=== PATIENT | female | born 1935 | race Caucasian/White ===

== ENCOUNTER 2016-11-17 11:44 | Inpatient (IN) | payer MEDICARE, MEDICAID ==
[~2016-11-17] VITALS: Ht 152.4 cm; Wt 83.0 kg
[2016-11-17] VITALS (11 sets, daily range): BP systolic 88–147; BP diastolic 33–71; PULSE 77–93; RESP 12–24; TEMP 97.8–98.7; O2SAT 95–99
[~2016-11-17 11:44] MED LIST: FAMO20TA8 PO; GLU850 PO; LEVO112T5 PO; LISI-209 PO; METO25TA6 PO
[2016-11-17] MEDS ORDERED: NACL 0.9% 1,000 ML IV ONE ×3 (12:00)
[2016-11-17 12:44] LABS: BASOPHILS # (AUTO) 0.1 K/uL (0.0-0.2); BASOPHILS % (AUTO) 1.4 % (0.0-2.0); EOSINOPHILS # (AUTO) 0.1 K/uL (0.0-0.4); EOSINOPHILS % (AUTO) 1.1 % (0.0-4.0); HEMATOCRIT 34.2 % (36-48); HEMOGLOBIN 11.4 g/dL (12.0-16.0); LYMPHOCYTES # (AUTO) 1.6 K/uL (1.0-5.5); MEAN CORPUSCULAR HEMOGLOBIN 28 pg (27-31); MEAN CORPUSCULAR HGB CONC 33 % (32-36); MEAN CORPUSCULAR VOLUME 84 fL (79.0-98.0); MONOCYTES % (AUTO) 11.3 % (1.7-9.3); NEUTROPHILS # (AUTO) 6.2 K/uL (1.8-7.7); NEUTROPHILS % (AUTO) 68.2 % (40.0-70.0); PLATELET COUNT (AUTO) 114 K/uL (130-430); RED BLOOD CELL COUNT(AUTO) 4.06 MIL/uL (4.2-6.2); RED CELL DISTRIBUTION WIDTH 16.2 % (9.0-15.0)
[2016-11-17 12:45] LABS: ANION GAP 11 (5-15); CALCIUM 10.4 mg/dL (8.4-11.0); CHLORIDE 98 mmol/L (98-107); CREATININE 2.01 mg/dL (0.55-1.30); GLUCOSE 125 mg/dL (70-99); POTASSIUM 4.3 mmol/L (3.5-5.1); SODIUM SERUM 132 mmol/L (136-145); UREA NITROGEN, BLOOD 27 mg/dL (8-21)
[2016-11-17 12:47] LABS: INR 1.1 (0.8-1.2)
[2016-11-17 12:49] LABS: ALANINE AMINOTRANSFERASE 16 U/L (12-78); ALBUMIN 2.7 g/dL (3.4-4.8); ASPARTATE AMINOTRANSFERASE 24 U/L (10-37); SALICYLATE 1 mg/dL (3-30); TOTAL BILIRUBIN 0.7 mg/dL (0.0-1.0); TOTAL PROTEIN, SERUM 6.8 g/dL (6.4-8.3)
[2016-11-17 12:52] LABS: ALCOHOL, BLOOD < 3 mg/dL (<10)
[2016-11-17 13:01] LABS: BILIRUBIN,URINE NEGATIVE (NEGATIVE); BLOOD, URINE 3+ (NEGATIVE); CLARITY/URINE HAZY (CLEAR); COLOR,URINE YELLOW (YELLOW); GLUCOSE,URINE NEGATIVE (NEGATIVE); KETONES,URINE TRACE (NEGATIVE); LEUKOCYTE ESTERASE ,URINE 2+ (NEGATIVE); NITRITE, URINE POSITIVE (NEGATIVE); PH,URINE 5.5 (5.0-8.0); PROTEIN URINE 3+ (NEGATIVE); UROBILINOGEN,URINE 0.2 (0.2-1.0)
[2016-11-17 13:08] LABS: ACETAMINOPHEN < 1 ug/mL (1-30)
[2016-11-17 13:18] LABS: OPIATE, URINE POSITIVE (NEG <=100); UR TRICYCLIC ANTIDEPRESSANTS POSITIVE (NEG <=300)
[2016-11-17 13:19] LABS: BARBITURATE, URINE NEGATIVE (NEG <=200); BENZODIAZEPINE, URINE POSITIVE (NEG <=150); CANNABINOID, URINE NEGATIVE (NEG <=50); COCAINE, URINE NEGATIVE (NEG <=150); METHAMPHETAMINES SCREEN,URINE NEGATIVE (NEG <=500); PHENCYCLIDINE SCREEN,URINE NEGATIVE (NEG <=25); URINE AMPHETAMINE NEGATIVE (NEG <=500); URINE METHADONE NEGATIVE (NEG <=200); URINE OXYCODONE SCREEN NEGATIVE (NEG <=100); URINE PROPOXYPHENE SCREEN NEGATIVE (NEG <=300)
[2016-11-17 13:30] LABS: BACTERIA,URINE MANY /HPF (None Seen); MUCUS,URINE 1+ /LPF (None Seen); WBC,URINE 50-80 /HPF (0-3)
[2016-11-17] MEDS ORDERED: ENOXAPARIN SODIUM 80 MG/0.8 ML SYRINGE SUBCUT ONE (14:00)
[2016-11-17] MEDS ORDERED: cefTRIAXone 1 GM IVPB PREMIX 50 ML IV ONE (14:00)
[2016-11-17] MEDS ORDERED: NOREPINEPHRINE BITARTRATE 4 MG in NS 250 ML IV ONE (14:45)
[2016-11-17] MEDS ORDERED: NOREPINEPHRINE 4 MG/4 ML VIAL IV ONE (14:54)
[2016-11-17] MEDS ORDERED: cefTRIAXone 1 GM VIAL ONE (15:26)
[2016-11-17] MEDS ORDERED: NACL 0.9% 1,000 ML IV SCH (15:30)
[2016-11-17] MEDS ORDERED: NOREPINEPHRINE BITARTRATE 4 MG in NS 246 ML IV PRN (15:30)
[2016-11-17] MEDS ORDERED: LEVOFLOXACIN 500 MG/D5W 100 ML IV ONE (16:00)
[2016-11-17] MEDS ORDERED: DEXTROSE 50% JECT 50 ML DISP.SYRIN IVP PRN (17:15)
[2016-11-17] MEDS ORDERED: ALBUTEROL SULFATE 0.083% 2.5 MG/3 ML VIAL.NEB INH ONE (17:30)
[2016-11-17] MEDS: INSULIN REGULAR, HUMAN 100 UNITS/ML, 10 ML VIAL (novoLIN R) SUBCUT PRN ×2 (18:09→21:09)
[2016-11-17] MEDS: PIPERACILLIN/TAZO 2.25G/DEX-IS 50 ML IV SCH (18:17)
[2016-11-17] MEDS: ALBUTEROL SULFATE 0.083% 2.5 MG/3 ML VIAL.NEB INH SCH ×2 (19:38→23:02)
[2016-11-17] MEDS: NACL 0.9% 1,000 ML IV SCH (19:39)
[2016-11-17] MEDS ORDERED: LORazepam 2 MG/ML VIAL ONE (20:57)
[2016-11-17] MEDS ORDERED: LORazepam 2 MG/ML VIAL IVP PRN (21:00)
[2016-11-17] MEDS ORDERED: HYDROcodone/ACETAMIN 5-325 MG TAB (NORCO/ VICODIN) PO PRN (21:00)
[2016-11-17] MEDS: LACTOBACILLUS RHAMNOSUS GG 1 CAP CAPSULE PO SCH (21:04)
[2016-11-17] MEDS ORDERED: SER25 PO ×2 (21:17)
[2016-11-17] MEDS ORDERED: LEVO112T5 PO (21:17)
[2016-11-17] MEDS ORDERED: ASPI-862 PO (21:17)
[2016-11-17] MEDS ORDERED: ZIN220 PO (21:17)
[2016-11-17] MEDS ORDERED: OMEP20CA10 PO (21:17)
[2016-11-17] MEDS ORDERED: ACET-2165 PO (21:17)
[2016-11-17] MEDS ORDERED: LISI-600 PO (21:17)
[2016-11-17] MEDS ORDERED: ASCO500T20 PO (21:17)
[2016-11-17] MEDS ORDERED: MULT-1117 PO (21:17)
[2016-11-17] MEDS ORDERED: MELA3TAB37 PO (21:17)
[2016-11-17] MEDS ORDERED: MINE3.5O27 OP (21:17)
[2016-11-17] MEDS ORDERED: IPRA3AMP9 INH ×3 (21:17)
[2016-11-17] MEDS ORDERED: METO25TA6 PO (21:17)
[2016-11-17] MEDS ORDERED: SENN8.8S13 PO (21:17)
[2016-11-17] MEDS ORDERED: FERR-57 PO (21:17)
[2016-11-17] MEDS ORDERED: POLY17PO4 PO (21:17)
[2016-11-17] MEDS ORDERED: SENN-153 PO (21:17)
[2016-11-18] VITALS (18 sets, daily range): BP systolic 99–180; BP diastolic 40–80; PULSE 72–105; RESP 17–24; TEMP 97.9–100; O2SAT 96–100
[2016-11-18] MEDS: PIPERACILLIN/TAZO 2.25G/DEX-IS 50 ML IV SCH ×4 (01:10→18:10)
[2016-11-18] MEDS: NACL 0.9% 1,000 ML IV SCH (01:10)
[2016-11-18 03:14] LABS: ANION GAP 9 (5-15); CHLORIDE 109 mmol/L (98-107); CREATININE 1.35 mg/dL (0.55-1.30); GLUCOSE 99 mg/dL (70-99); POTASSIUM 3.7 mmol/L (3.5-5.1); SODIUM SERUM 140 mmol/L (136-145); UREA NITROGEN, BLOOD 23 mg/dL (8-21)
[2016-11-18 03:37] LABS: ALANINE AMINOTRANSFERASE 11 U/L (12-78); ALBUMIN 1.9 g/dL (3.4-4.8); ASPARTATE AMINOTRANSFERASE 19 U/L (10-37); PHOSPHORUS 2.6 mg/dL (2.7-4.5); TOTAL BILIRUBIN 0.4 mg/dL (0.0-1.0); TOTAL PROTEIN, SERUM 5.1 g/dL (6.4-8.3)
[2016-11-18] MEDS: ALBUTEROL SULFATE 0.083% 2.5 MG/3 ML VIAL.NEB INH SCH ×5 (04:11→19:48)
[2016-11-18 07:27] LABS: BASOPHILS # (AUTO) 0.1 K/uL (0.0-0.2); BASOPHILS % (AUTO) 3.2 % (0.0-2.0); EOSINOPHILS # (AUTO) 0.1 K/uL (0.0-0.4); EOSINOPHILS % (AUTO) 3.4 % (0.0-4.0); HEMATOCRIT 28.1 % (36-48); HEMOGLOBIN 8.9 g/dL (12.0-16.0); LYMPHOCYTES # (AUTO) 0.8 K/uL (1.0-5.5); LYMPHOCYTES % (AUTO) 19.2 % (20.5-51.5); MEAN CORPUSCULAR HEMOGLOBIN 27 pg (27-31); MEAN CORPUSCULAR HGB CONC 32 % (32-36); MEAN CORPUSCULAR VOLUME 86 fL (79.0-98.0); MONOCYTES # (AUTO) 0.5 K/uL (0.0-1.0); MONOCYTES % (AUTO) 12.6 % (1.7-9.3); NEUTROPHILS # (AUTO) 2.5 K/uL (1.8-7.7); NEUTROPHILS % (AUTO) 61.6 % (40.0-70.0); PLATELET COUNT (AUTO) 70 K/uL (130-430); RED BLOOD CELL COUNT(AUTO) 3.26 MIL/uL (4.2-6.2)
[2016-11-18] MEDS: LACTOBACILLUS RHAMNOSUS GG 1 CAP CAPSULE PO SCH ×2 (09:00→20:30)
[2016-11-18] MEDS ORDERED: HALOPERIDOL LACTATE 5 MG/ML VIAL IVP PRN (09:30)
[2016-11-18 09:52] LABS: BLOOD GAS PH 7.358 (7.350-7.450)
[2016-11-18 09:53] LABS: ABG TOTAL HEMOGLOBIN 9.9 G/dL (12.0-18.0); BLOOD GAS BASE EXCESS -5.1 mmol/L (-3.0-3.0); BLOOD GAS COHb% 0.3 % (0.5-1.5); BLOOD GAS HHB 3.5 % (0.0-6.0); BLOOD O2Hb% 95.9 % (94.0-97.0)
[2016-11-18] MEDS ORDERED: ACETAMINOPHEN 650 MG SUPP.RECT RC PRN (18:00)
== END 2016-11-18 21:56 | disposition short-term general hospital (02) | DRG 871 ==
LOC: SED 11:44 → SIC 15:20 → MERGE 15:20 → SIC 15:50
PROVIDERS: ADMIT Internal Medicine; ATTEND Internal Medicine
DX: A41.9 Sepsis, unspecified organism (principal); R65.21 Severe sepsis with septic shock; I21.4 Non-ST elevation (NSTEMI) myocardial infarction; E43 Unspecified severe protein-calorie malnutrition; N17.9 Acute kidney failure, unspecified; N39.0 Urinary tract infection, site not specified; E87.1 Hypo-osmolality and hyponatremia; G81.94 Hemiplegia, unspecified affecting left nondominant side; J96.11 Chronic respiratory failure with hypoxia; I10 Essential (primary) hypertension; E86.0 Dehydration; D64.9 Anemia, unspecified; D69.6 Thrombocytopenia, unspecified; I67.1 Cerebral aneurysm, nonruptured; E11.9 Type 2 diabetes mellitus without complications; F03.90 Unspecified dementia, unspecified severity, without behavioral disturbance, psychotic disturbance, mood disturbance, and anxiety; Z74.01 Bed confinement status; Z93.0 Tracheostomy status; Z85.3 Personal history of malignant neoplasm of breast; Z86.73 Personal history of transient ischemic attack (TIA), and cerebral infarction without residual deficits; Z87.891 Personal history of nicotine dependence; Z90.12 Acquired absence of left breast and nipple; Z90.710 Acquired absence of both cervix and uterus; Z99.81 Dependence on supplemental oxygen; Z88.2 Allergy status to sulfonamides; Z91.041 Radiographic dye allergy status; Z79.899 Other long term (current) drug therapy; Z68.35 Body mass index [BMI] 35.0-35.9, adult
CPT/HCPCS: 36415; 36600; 71010; 80053; 80307; 81000-TC; 82803-TC; 82962; 83036; 83605; 83735-TC; 83880; 84100-TC; 84484; 85025; 85610-TC; 87040-TC; 87081; 87086; 87186-TC; 93005; 93306; 94640; 96361; 96365; G0480; G0481; G0482; J0696; J1815; J1956; J2060; J2543; J7030; J7050

== ENCOUNTER 2016-11-28 18:52 | Emergency (ER) | payer MEDICARE, MEDICAID ==
[~2016-11-28] VITALS: Ht 152.4 cm; Wt 81.6 kg
[~2016-11-28 18:52] MED LIST changes: +ACET-2165 PO; +ASCO500T20 PO; +ASPI-862 PO; +FERR-57 PO; +IPRA3AMP9 INH; +LISI-600 PO; +MELA3TAB37 PO; +MINE3.5O27 OP; +MULT-1117 PO; +OMEP20CA10 PO; +POLY17PO4 PO; +SENN-153 PO; +SENN8.8S13 PO; +SER25 PO; +ZIN220 PO
--- NOTE | 2016-11-28 18:54 | NUR ---
Arrived via ALS ambulance for alter level of consciousness x 40 min. Per grandson the pt is normally AAO x 3, now she has eye opening to pain, non-verbal. Trach is displaced. Blanca RT to bedside immediately. Patient to ER bed 8 to gown for evaluation. Side rails up. Palced on patient monitor. Report given to Raine GAMEZ.
[2016-11-28 18:55] VITALS: BP 144/83; PULSE 91; RESP 22; TEMP 97.3; O2SAT 96
--- NOTE | 2016-11-28 18:55 | NUR ---
ER Dr. Dewitt at bedside examining patient.
--- NOTE | 2016-11-28 18:58 | NUR ---
Pt brought in by ALS transport in stable condition. Per grandson, pt was being feed and became altered. Per grandson, pt is usually able to respond to pain and speak. Pt is trached to room air. Per grandson, trach was dislodged and medics replaced it. Pt present w/ an. Placed pt on media monitor and will continue to monitor.
[2016-11-28 20:01] LABS: BASOPHILS % (AUTO) 0.4 % (0.0-2.0); EOSINOPHILS # (AUTO) 0.1 K/uL (0.0-0.4); EOSINOPHILS % (AUTO) 1.2 % (0.0-4.0); HEMATOCRIT 34.9 % (36-48); HEMOGLOBIN 11.4 g/dL (12.0-16.0); LYMPHOCYTES # (AUTO) 1.5 K/uL (1.0-5.5); LYMPHOCYTES % (AUTO) 13.3 % (20.5-51.5); MEAN CORPUSCULAR HEMOGLOBIN 28 pg (27-31); MEAN CORPUSCULAR HGB CONC 33 % (32-36); MEAN CORPUSCULAR VOLUME 87 fL (79.0-98.0); MONOCYTES # (AUTO) 0.5 K/uL (0.0-1.0); MONOCYTES % (AUTO) 4.6 % (1.7-9.3); NEUTROPHILS # (AUTO) 9.3 K/uL (1.8-7.7); NEUTROPHILS % (AUTO) 80.5 % (40.0-70.0); PLATELET COUNT (AUTO) 122 K/uL (130-430); RED BLOOD CELL COUNT(AUTO) 4.02 MIL/uL (4.2-6.2); RED CELL DISTRIBUTION WIDTH 15.8 % (9.0-15.0); WHITE BLOOD COUNT (AUTO) 11.4 K/uL (4.8-10.8)
[2016-11-28 20:06] LABS: ANION GAP 7 (5-15); CALCIUM 10.2 mg/dL (8.4-11.0); CHLORIDE 105 mmol/L (98-107); CREATININE 0.95 mg/dL (0.55-1.30); GLUCOSE 104 mg/dL (70-99); SODIUM SERUM 135 mmol/L (136-145); UREA NITROGEN, BLOOD 12 mg/dL (8-21)
[2016-11-28 20:11] LABS: ALANINE AMINOTRANSFERASE 13 U/L (12-78); ALBUMIN 2.7 g/dL (3.4-4.8); ASPARTATE AMINOTRANSFERASE 18 U/L (10-37); SALICYLATE 1 mg/dL (3-30); TOTAL BILIRUBIN 0.6 mg/dL (0.0-1.0); TOTAL PROTEIN, SERUM 7.3 g/dL (6.4-8.3)
[2016-11-28 20:16] LABS: ALCOHOL, BLOOD < 3 mg/dL (<10)
[2016-11-28 20:19] LABS: ACETAMINOPHEN < 1 ug/mL (1-30)
[2016-11-28 20:22] LABS: INR 1.1 (0.8-1.2); PROTHROMBIN TIME 11.4 SECS (9.5-12.5)
[2016-11-28 20:29] LABS: BILIRUBIN,URINE 1+ (NEGATIVE); BLOOD, URINE 3+ (NEGATIVE); CLARITY/URINE CLOUDY (CLEAR); COLOR,URINE YELLOW (YELLOW); GLUCOSE,URINE NEGATIVE (NEGATIVE); KETONES,URINE 2+ (NEGATIVE); LEUKOCYTE ESTERASE ,URINE 2+ (NEGATIVE); NITRITE, URINE NEGATIVE (NEGATIVE); PROTEIN URINE 1+ (NEGATIVE); UROBILINOGEN,URINE 0.2 (0.2-1.0)
--- NOTE | 2016-11-28 20:34 | NUR ---
ER at bedside examining patient.
[2016-11-28 20:38] LABS: BACTERIA,URINE MODERATE /HPF (None Seen); MUCUS,URINE 1+ /LPF (None Seen); RBC,URINE 20-50 /HPF (0-3); WBC,URINE 50-80 /HPF (0-3); YEAST,URINE Moderate /HPF (None Seen)
[2016-11-28 20:40] LABS: BARBITURATE, URINE NEGATIVE (NEG <=200); BENZODIAZEPINE, URINE POSITIVE (NEG <=150); CANNABINOID, URINE NEGATIVE (NEG <=50); COCAINE, URINE NEGATIVE (NEG <=150); METHAMPHETAMINES SCREEN,URINE NEGATIVE (NEG <=500); OPIATE, URINE NEGATIVE (NEG <=100); PHENCYCLIDINE SCREEN,URINE NEGATIVE (NEG <=25); UR TRICYCLIC ANTIDEPRESSANTS POSITIVE (NEG <=300); URINE AMPHETAMINE NEGATIVE (NEG <=500); URINE METHADONE NEGATIVE (NEG <=200); URINE OXYCODONE SCREEN NEGATIVE (NEG <=100); URINE PROPOXYPHENE SCREEN NEGATIVE (NEG <=300)
[2016-11-28] MEDS ORDERED: cefTRIAXone 1 GM IVPB PREMIX 50 ML IV ONE (20:45)
[2016-11-29 00:54] VITALS: BP 115/48; PULSE 96; RESP 14; TEMP 98.9; O2SAT 95
--- NOTE | 2016-11-29 00:54 | NUR ---
Patient to be transferred to [facility] ER. Is being transferred due to higher level of care. Receiving facility has accepting physician and available space. ER physician has signed transfer form. Patient or responsible democrat has agreed to transfer and signed form. Patient belongings inventoried and will be sent with patient. Copy of nursing notes, lab reports, EKG, Physicians Orders and X-rays to be sent with patient. Report called to Halle, Charge Nurse at receiving facility. Receiving physician is Dr. Centeno. [facility] service has been called for transfer. ETA is 30 minutes.
== END 2016-11-29 00:54 | disposition short-term general hospital (02) ==
LOC: SED 18:52
DX: R40.4 Transient alteration of awareness (principal); N39.0 Urinary tract infection, site not specified; E11.9 Type 2 diabetes mellitus without complications; I10 Essential (primary) hypertension; Z86.79 Personal history of other diseases of the circulatory system; Z85.3 Personal history of malignant neoplasm of breast; Z79.899 Other long term (current) drug therapy
CPT/HCPCS: 36415; 70450; 71010; 80053; 80307; 81000; 83605; 84484; 85025; 85610; 85730; 87040; 87086; 93005; 94644; 96365; 99285; G0480; G0481; G0482; J0696; 87186-TC

== ENCOUNTER 2016-12-01 03:08 | Emergency (ER) | payer MEDICARE, MEDICAID ==
[~2016-12-01] VITALS: Ht 162.6 cm; Wt 122.5 kg
--- NOTE | 2016-12-01 03:08 | NUR ---
Patient to ER bed 8 to gown for evaluation. Side rails up. Report given to VERA IVORY.
--- NOTE | 2016-12-01 03:10 | NUR ---
Pt came in BLS. Pt's grandson stated that the pt was getting agitated and developed L side chest pain a few hours ago. Upon assessment, pt was denying pain, SOB, or any other complaints.Pt is a trach pt. Pt is bedbound. Pt is AAO x3. Pt placed on mapping technician and will continue to monitor. No other injuries or complaints mentioned/noted. No distress noted.
[2016-12-01 03:22] VITALS: BP 99/42; PULSE 90; RESP 14; TEMP 97.6; O2SAT 95
--- NOTE | 2016-12-01 03:45 | NUR ---
ER Dr. Vigil at bedside examining patient.
[2016-12-01 06:43] VITALS: BP 109/36; PULSE 87; RESP 14; TEMP 97.6; O2SAT 96
--- NOTE | 2016-12-01 06:43 | NUR ---
Patient given written and verbal discharge instructions. Pt is confused and unable to sign. ER MD discussed with patient the results and treatment provided. Patient in stable condition. ID arm band removed. Patient educated on pain management and to follow up with PMD. Pain Scale 0/10. Opportunity for questions provided and answered. Transported back home via BLS.
== END 2016-12-01 06:43 | disposition home or self-care (01) ==
LOC: SED 03:08
DX: R06.02 Shortness of breath (principal); E11.9 Type 2 diabetes mellitus without complications; I10 Essential (primary) hypertension; Z85.3 Personal history of malignant neoplasm of breast; Z91.02 Food additives allergy status; Z79.82 Long term (current) use of aspirin; Z79.899 Other long term (current) drug therapy
CPT/HCPCS: 71010; 99283

== ENCOUNTER 2016-12-16 20:45 | Emergency (ER) | payer MEDICARE, MEDICAID ==
[~2016-12-16] VITALS: Ht 152.4 cm; Wt 79.8 kg
[2016-12-16 20:45] VITALS: BP 115/60; PULSE 63; RESP 14; TEMP 97; O2SAT 100
--- NOTE | 2016-12-16 20:46 | NUR ---
Placed in room 04 . Placed on teradata architect, blood pressure machine and pulse oximeter. To gown for exam. Side rails up. Report given to VERA Downing.
--- NOTE | 2016-12-16 20:48 | NUR ---
Patient brought in via BLS for shortness of breath post trach-care. Patient family states that they were cleaning her inner cannula of her trach and it dislodged and they could not get the new cannula in "all the way". Patient vital signs stable, trach properly placed by the time patient was brought into ER. Patient family O2 SAT 100% RA, no shortness of breath, VSS. No acute distress noted. Will continue to monitor.
--- NOTE | 2016-12-16 20:56 | NUR ---
ER Dr. GARG at bedside examining patient.
[2016-12-16] MEDS ORDERED: NACL 0.9% 1,000 ML IV ONE (20:57)
--- NOTE | 2016-12-16 21:10 | NUR ---
Patient family refusing blood draw, Urine collection and x-ray, stating "we just want to take her back home, she's fine now."
--- NOTE | 2016-12-16 21:11 | NUR ---
MD aware of patient family refusal for treatment of blood draw, x-ray, and urine collection.
--- NOTE | 2016-12-16 22:00 | NUR ---
Patient family at bedside, no acute distress noted, VSS. Will continue to monitor.
--- NOTE | 2016-12-16 23:00 | NUR ---
Patient moaning and yelling in bed, family states that is normal for her in the evenings to yell and moan.
[2016-12-16] MEDS ORDERED: LORazepam 1 MG TABLET NG ONE (23:15)
[2016-12-16 23:42] VITALS: BP 120/65; PULSE 79; RESP 14; TEMP 97.1; O2SAT 98
--- NOTE | 2016-12-16 23:42 | NUR ---
Transport for patient arrived, family at bedside, patient stable, vital signs stable.
--- NOTE | 2016-12-16 23:42 | NUR ---
Patient given written and verbal discharge instructions to family and verbalizes understanding. ER MD discussed with patient the results and treatment provided. Patient in stable condition. Patient educated on pain management and to follow up with PMD. Pain Scale 0/10. Opportunity for questions provided and answered.
== END 2016-12-16 23:42 | disposition home or self-care (01) ==
LOC: SED 20:45
DX: J95.09 Other tracheostomy complication (principal); E11.9 Type 2 diabetes mellitus without complications; I10 Essential (primary) hypertension; E78.5 Hyperlipidemia, unspecified; Z91.02 Food additives allergy status; Z79.82 Long term (current) use of aspirin; Z85.3 Personal history of malignant neoplasm of breast; Z86.73 Personal history of transient ischemic attack (TIA), and cerebral infarction without residual deficits
CPT/HCPCS: 99283; J7030

== ENCOUNTER 2016-12-23 11:49 | Emergency (ER) | payer MEDICARE, MEDICAID ==
[~2016-12-23] VITALS: Ht 157.5 cm; Wt 54.4 kg
[2016-12-23 11:49] VITALS: BP 151/77; PULSE 92; RESP 19; TEMP 97.8; O2SAT 95
--- NOTE | 2016-12-23 11:49 | NUR ---
BROUGHT IN BY [facility] [address] AND JUANY HENNING, TRIAGED. REPORT GIVEN TO PRAVEEN
--- NOTE | 2016-12-23 12:00 | NUR ---
Assumed care. Pt baseline ALOC per family at bedside.Pt lives at home. Pt had episode of nonresponsiveness at approx 0200 this AM. Pt's family at hoem peform CPR and pt awaken and insisted family memeber to stop. Pt's family did not seek further medical attention at that time. Family call EMSfor same S/s approx 45 min ago. Pt h/o HTN ,DM,bilateral foot drop,Olmedo cath and GT w/ healing pressure ulcer on coccyx.
[2016-12-23 12:27] LABS: BASOPHILS % (AUTO) 0.7 % (0.0-2.0); EOSINOPHILS # (AUTO) 0.2 K/uL (0.0-0.4); HEMATOCRIT 32.6 % (36-48); HEMOGLOBIN 10.4 g/dL (12.0-16.0); LYMPHOCYTES # (AUTO) 1.2 K/uL (1.0-5.5); MEAN CORPUSCULAR HEMOGLOBIN 28 pg (27-31); MEAN CORPUSCULAR HGB CONC 32 % (32-36); MEAN CORPUSCULAR VOLUME 87 fL (79.0-98.0); MONOCYTES # (AUTO) 0.4 K/uL (0.0-1.0); MONOCYTES % (AUTO) 8.9 % (1.7-9.3); NEUTROPHILS # (AUTO) 2.5 K/uL (1.8-7.7); NEUTROPHILS % (AUTO) 59.4 % (40.0-70.0); PLATELET COUNT (AUTO) 134 K/uL (130-430); RED BLOOD CELL COUNT(AUTO) 3.77 MIL/uL (4.2-6.2); RED CELL DISTRIBUTION WIDTH 16.5 % (9.0-15.0); WHITE BLOOD COUNT (AUTO) 4.3 K/uL (4.8-10.8)
--- NOTE | 2016-12-23 12:30 | NUR ---
PT SUCTIONED PER REQUEST OF DAUGHTER BY RT MURGUIA
[2016-12-23 12:33] LABS: ANION GAP 6 (5-15); CALCIUM 10.3 mg/dL (8.4-11.0); CHLORIDE 105 mmol/L (98-107); CREATININE 0.91 mg/dL (0.55-1.30); GLUCOSE 168 mg/dL (70-99); POTASSIUM 3.7 mmol/L (3.5-5.1); SODIUM SERUM 140 mmol/L (136-145); UREA NITROGEN, BLOOD 11 mg/dL (8-21)
[2016-12-23 12:36] LABS: PROTHROMBIN TIME 10.9 SECS (9.5-12.5)
[2016-12-23 12:38] LABS: ALANINE AMINOTRANSFERASE 18 U/L (12-78); ALBUMIN 2.7 g/dL (3.4-4.8); ASPARTATE AMINOTRANSFERASE 22 U/L (10-37); CREATINE KINASE, TOTAL 22 U/L (26-192); TOTAL BILIRUBIN 0.4 mg/dL (0.0-1.0); TOTAL PROTEIN, SERUM 7.2 g/dL (6.4-8.3)
--- NOTE | 2016-12-23 13:30 | NUR ---
Pt's soiled diaper and bed. Pt cleaned.
--- NOTE | 2016-12-23 14:13 | NUR ---
PT TO BE TX TO [place].FAMILY VERBALIZED UNDERSTANDING.
--- NOTE | 2016-12-23 14:35 | NUR ---
[facility] CALLED. ESTIMATED TIME OF ARRIVAL 15-30 MINUTES [facility] DINA GARCIA--PHONE# [phone] ACCEPTING DOCTOR--DR SOTO
--- NOTE | 2016-12-23 15:05 | NUR ---
Patient to be transferred to [facility] ER. Is being transferred due to higher level of care. Receiving facility has accepting physician and available space. ER physician has signed transfer form. Patient or responsible green party has agreed to transfer and signed form. Patient belongings inventoried and will be sent with patient. Copy of nursing notes, lab reports, EKG, Physicians Orders and X-rays to be sent with patient. Report called to NICKI GAMEZ at receiving facility. Receiving physician is . [facility] service has been called for transfer. ETA is 1532
[2016-12-23 15:30] VITALS: BP 148/72; PULSE 87; RESP 20; TEMP 97.9; O2SAT 96
--- NOTE | 2016-12-23 15:30 | NUR ---
[facility] at bedside for transport
== END 2016-12-23 15:30 | disposition short-term general hospital (02) ==
LOC: SED 11:49
DX: R06.81 Apnea, not elsewhere classified (principal); E11.9 Type 2 diabetes mellitus without complications; I10 Essential (primary) hypertension; D48.62 Neoplasm of uncertain behavior of left breast; Z88.8 Allergy status to other drugs, medicaments and biological substances; Z91.02 Food additives allergy status
CPT/HCPCS: 36415; 71010; 80053; 82140-TC; 82550-TC; 83880; 84484; 85025; 85610-TC; 85730-TC; 93005; 99285

== ENCOUNTER 2016-12-30 12:31 | Emergency (ER) | payer MEDICARE, MEDICAID ==
[~2016-12-30] VITALS: Ht 152.4 cm; Wt 77.1 kg
--- NOTE | 2016-12-30 12:34 | NUR ---
BIB [facility] ambulance, c/o shortness of breath, altered,audible wheezing from tracheostomy.pt awake,confused,oriented x1.mild distress. pt's grandson at bedside.
[2016-12-30] MEDS ORDERED: NACL 0.9% 1,000 ML IV SCH (12:35)
--- NOTE | 2016-12-30 12:35 | NUR ---
Placed in room 2 . Placed on evaporator operator, blood pressure machine and pulse oximeter. To gown for exam. Side rails up.
--- NOTE | 2016-12-30 12:35 | NUR ---
ER at bedside examining patient.
[2016-12-30 12:37] VITALS: BP 127/67; PULSE 76; RESP 18; TEMP 98.1; O2SAT 97
--- NOTE | 2016-12-30 12:40 | NUR ---
tracheostomy dressing changed by RT.
[2016-12-30] MEDS ORDERED: VANCOMYCIN HCL 1,000 MG in D5W 250 ML IV ONE (12:45)
--- NOTE | 2016-12-30 12:57 | NUR ---
# 22 gauge angiocath placed to Right wrist. Use of asceptic technique. Opsite placed over site. Blood return noted. Flushed with 10 cc of normal saline. No evidence of infiltration noted. Patient tolerated well.
--- NOTE | 2016-12-30 12:57 | NUR ---
Portable xay done
--- NOTE | 2016-12-30 13:05 | NUR ---
Preston olsen in ED - 12/30/16 at 1410 by MARLIEX DINA James at bedside examining patient.
[2016-12-30] MEDS ORDERED: VANCOMYCIN HCL 1000 MG/VIAL IV ONE (13:07)
--- NOTE | 2016-12-30 13:07 | NUR ---
family refused to change an.
[2016-12-30 13:18] LABS: BASOPHILS % (AUTO) 0.7 % (0.0-2.0); EOSINOPHILS # (AUTO) 0.1 K/uL (0.0-0.4); EOSINOPHILS % (AUTO) 2.6 % (0.0-4.0); HEMATOCRIT 32.8 % (36-48); HEMOGLOBIN 10.4 g/dL (12.0-16.0); LYMPHOCYTES # (AUTO) 1.3 K/uL (1.0-5.5); MEAN CORPUSCULAR HEMOGLOBIN 28 pg (27-31); MEAN CORPUSCULAR HGB CONC 32 % (32-36); MEAN CORPUSCULAR VOLUME 87 fL (79.0-98.0); MONOCYTES # (AUTO) 0.3 K/uL (0.0-1.0); MONOCYTES % (AUTO) 7.6 % (1.7-9.3); NEUTROPHILS # (AUTO) 2.5 K/uL (1.8-7.7); NEUTROPHILS % (AUTO) 59.1 % (40.0-70.0); PLATELET COUNT (AUTO) 137 K/uL (130-430); RED BLOOD CELL COUNT(AUTO) 3.77 MIL/uL (4.2-6.2); RED CELL DISTRIBUTION WIDTH 15.7 % (9.0-15.0); WHITE BLOOD COUNT (AUTO) 4.2 K/uL (4.8-10.8)
--- NOTE | 2016-12-30 13:30 | NUR ---
transported to ct scan via [facility].
[2016-12-30 13:39] LABS: PROTHROMBIN TIME 10.9 SECS (9.5-12.5)
[2016-12-30 13:47] LABS: CALCIUM 10.4 mg/dL (8.4-11.0); CHLORIDE 106 mmol/L (98-107); GLUCOSE 125 mg/dL (70-99); POTASSIUM 3.8 mmol/L (3.5-5.1); SODIUM SERUM 141 mmol/L (136-145)
[2016-12-30 13:48] LABS: UREA NITROGEN, BLOOD 14 mg/dL (8-21)
[2016-12-30 13:51] LABS: ALANINE AMINOTRANSFERASE 16 U/L (12-78); ANION GAP 8 (5-15); ASPARTATE AMINOTRANSFERASE 21 U/L (10-37); TOTAL BILIRUBIN 0.3 mg/dL (0.0-1.0)
[2016-12-30 13:52] LABS: ALBUMIN 2.9 g/dL (3.4-4.8); TOTAL PROTEIN, SERUM 7.5 g/dL (6.4-8.3)
--- NOTE | 2016-12-30 13:55 | NUR ---
Pt stable, verbal, VSS, family at bedside
[2016-12-30] MEDS ORDERED: ASPIRIN 325 MG TABLET PO ONE (14:30)
[2016-12-30] MEDS ORDERED: ETOMIDATE 20 MG/ 10 ML VIAL (AMIDATE) IVP ONE (14:30)
--- NOTE | 2016-12-30 14:45 | NUR ---
left shoulder reduction procedure consent signed by pt's grandson.
--- NOTE | 2016-12-30 15:10 | NUR ---
left shoulder reduction performed by Dr obregon.pt tolerated well
--- NOTE | 2016-12-30 15:11 | NUR ---
left arm sling placed.
--- NOTE | 2016-12-30 15:30 | NUR ---
post procedure rayna lopez
--- NOTE | 2016-12-30 15:47 | NUR ---
pt awake,alerted x 3.no distress.in stable condition
[2016-12-30 16:57] LABS: BILIRUBIN,URINE NEGATIVE (NEGATIVE); BLOOD, URINE 2+ (NEGATIVE); CLARITY/URINE CLOUDY (CLEAR); COLOR,URINE YELLOW (YELLOW); GLUCOSE,URINE NEGATIVE (NEGATIVE); KETONES,URINE NEGATIVE (NEGATIVE); LEUKOCYTE ESTERASE ,URINE 3+ (NEGATIVE); NITRITE, URINE POSITIVE (NEGATIVE); PROTEIN URINE NEGATIVE (NEGATIVE); UROBILINOGEN,URINE 0.2 (0.2-1.0)
--- NOTE | 2016-12-30 17:02 | NUR ---
report given to [facility] charge nurse bebe GAMEZ
[2016-12-30] MEDS ORDERED: LORazepam 2 MG/ML VIAL (FOR ER USE) IVP ONE (17:15)
[2016-12-30 17:19] LABS: BACTERIA,URINE MANY /HPF (None Seen); WBC,URINE 50-80 /HPF (0-3)
[2016-12-30 17:20] LABS: CALCIUM OXALATE CRYSTALS,UR 0-10 /HPF (None Seen); MUCUS,URINE 1+ /LPF (None Seen)
--- NOTE | 2016-12-30 17:21 | NUR ---
pt became agitated,notified Dr obregon, ativan 1 mg ivp given per MD's order.
[2016-12-30 18:30] VITALS: BP 166/87; PULSE 96; RESP 18; TEMP 98.6; O2SAT 99
--- NOTE | 2016-12-30 18:32 | NUR ---
Patient to be transferred to [facility]. Is being transferred due to higher level of care. Receiving facility has accepting physician and available space. ER physician has signed transfer form. Patient or responsible democrat has agreed to transfer and signed form. Patient belongings inventoried and will be sent with patient. Copy of nursing notes, lab reports, EKG, Physicians Orders and X-rays to be sent with patient. Report called to at receiving facility. Receiving physician is ambulance service has been called for transfer.
== END 2016-12-30 18:30 | disposition short-term general hospital (02) ==
LOC: SED 12:31
DX: S43.085A Other dislocation of left shoulder joint, initial encounter (principal); R07.89 Other chest pain; R06.00 Dyspnea, unspecified; R40.4 Transient alteration of awareness; E11.9 Type 2 diabetes mellitus without complications; I10 Essential (primary) hypertension; Z79.899 Other long term (current) drug therapy; Z85.3 Personal history of malignant neoplasm of breast; Z91.02 Food additives allergy status; Z91.048 Other nonmedicinal substance allergy status; X58.XXXA Exposure to other specified factors, initial encounter; Y93.89 Activity, other specified; Y92.89 Other specified places as the place of occurrence of the external cause; Y99.8 Other external cause status
CPT/HCPCS: 23650; 36415; 70450; 71010; 73030; 80053; 81000; 83605; 83880; 84484; 85025; 85610; 85730; 87040; 87086; 93005; 96365; 96367; 96375; 99152; 99153; 99285; J1956; J2060; J3370; J3490; J7030; J7060; 87186-TC

== ENCOUNTER 2017-01-05 19:36 | Emergency (ER) | payer MEDICARE, MEDICAID ==
[~2017-01-05] VITALS: Ht 167.6 cm; Wt 104.3 kg
--- NOTE | 2017-01-05 19:36 | NUR ---
Patient to ER bed 01 to gown for evaluation. Side rails up. Report given to DORIAN.
[2017-01-05 19:37] VITALS: BP 128/54; PULSE 83; RESP 20; TEMP 98.4; O2SAT 100
--- NOTE | 2017-01-05 19:37 | NUR ---
ER Dr. PINA at bedside examining patient. RT at bedside.
--- NOTE | 2017-01-05 19:53 | NUR ---
pt transferred to ER bed 6 via [facility].
[2017-01-05 21:23] LABS: BASOPHILS % (AUTO) 1.1 % (0.0-2.0); EOSINOPHILS # (AUTO) 0.1 K/uL (0.0-0.4); HEMATOCRIT 29.6 % (36-48); LYMPHOCYTES # (AUTO) 0.9 K/uL (1.0-5.5); LYMPHOCYTES % (AUTO) 24.8 % (20.5-51.5); MEAN CORPUSCULAR HEMOGLOBIN 29 pg (27-31); MEAN CORPUSCULAR HGB CONC 34 % (32-36); MEAN CORPUSCULAR VOLUME 86 fL (79.0-98.0); MONOCYTES # (AUTO) 0.4 K/uL (0.0-1.0); MONOCYTES % (AUTO) 10.4 % (1.7-9.3); NEUTROPHILS # (AUTO) 2.2 K/uL (1.8-7.7); PLATELET COUNT (AUTO) 78 K/uL (130-430); RED BLOOD CELL COUNT(AUTO) 3.43 MIL/uL (4.2-6.2); RED CELL DISTRIBUTION WIDTH 15.4 % (9.0-15.0); WHITE BLOOD COUNT (AUTO) 3.7 K/uL (4.8-10.8)
[2017-01-05 21:26] LABS: ANION GAP 4 (5-15); CALCIUM 9.3 mg/dL (8.4-11.0); CHLORIDE 110 mmol/L (98-107); CREATININE 0.86 mg/dL (0.55-1.30); GLUCOSE 135 mg/dL (70-99); SODIUM SERUM 142 mmol/L (136-145); UREA NITROGEN, BLOOD 6 mg/dL (8-21)
[2017-01-05 21:31] LABS: ALANINE AMINOTRANSFERASE 19 U/L (12-78); ALBUMIN 2.6 g/dL (3.4-4.8); ASPARTATE AMINOTRANSFERASE 18 U/L (10-37); INR 1.1 (0.8-1.2); PROTHROMBIN TIME 12.1 SECS (9.5-12.5); TOTAL BILIRUBIN 0.3 mg/dL (0.0-1.0); TOTAL PROTEIN, SERUM 6.3 g/dL (6.4-8.3)
[2017-01-05 21:37] LABS: NEUTROPHILS % (AUTO) 60.7 % (40.0-70.0)
[2017-01-05] MEDS ORDERED: POTASSIUM CHLORIDE 20 MEQ TAB.PRT.SR PO ONE (22:00)
[2017-01-06] VITALS: BP 122/58; PULSE 78; RESP 18; TEMP 98.4; O2SAT 100
--- NOTE | 2017-01-06 | NUR ---
Patient to be transferred to [facility]. Is being transferred due to higher level of care. Receiving facility has accepting physician and available space. ER physician has signed transfer form. Patient or responsible libertarian has agreed to transfer and signed form. Patient belongings inventoried and will be sent with patient. Copy of nursing notes, lab reports, EKG, Physicians Orders and X-rays to be sent with patient. Report called to [facility] Eneida at receiving facility. Receiving physician is Espitia. [facility] transferring NOW.
== END 2017-01-06 | disposition short-term general hospital (02) ==
LOC: SED 19:36
DX: J95.03 Malfunction of tracheostomy stoma (principal); E11.9 Type 2 diabetes mellitus without complications; I10 Essential (primary) hypertension; Z86.79 Personal history of other diseases of the circulatory system; Z85.3 Personal history of malignant neoplasm of breast; Z79.82 Long term (current) use of aspirin; Z79.899 Other long term (current) drug therapy; Z88.8 Allergy status to other drugs, medicaments and biological substances; Z91.02 Food additives allergy status
CPT/HCPCS: 36415; 70450-TC; 80053; 85025; 85610-TC; 85730-TC; 99285

== ENCOUNTER 2017-01-07 20:09 | Emergency (ER) | payer MEDICARE, MEDICAID ==
[~2017-01-07] VITALS: Ht 170.2 cm; Wt 99.8 kg
[2017-01-07 20:10] VITALS: BP_SYST 105
--- NOTE | 2017-01-07 20:10 | NUR ---
Patient to ER bed 6 to gown for evaluation. Side rails up. Report given to Mesha GAMEZ.
--- NOTE | 2017-01-07 20:15 | NUR ---
Pt brought in by ALS transport in stable condition. Per family, pt is has been combative and has not been eating for the past 2 days. -sob -chest pain. No acute distress noted at this time, will continue to monitor. Placed pt on monitoring and evaluation advisor
--- NOTE | 2017-01-07 20:25 | NUR ---
ER at bedside examining patient.
[2017-01-07] MEDS ORDERED: NACL 0.9% 1,000 ML IV ONE (20:45)
[2017-01-07] MEDS ORDERED: LORazepam 2 MG/ML VIAL (FOR ER USE) IVP ONE (21:00)
[2017-01-07] MEDS ORDERED: NS 500 ML IV ONE (21:00)
[2017-01-07 21:02] LABS: ABG TOTAL HEMOGLOBIN 10.8 G/dL (12.0-18.0); BLOOD GAS BASE EXCESS 0.8 mmol/L (-3.0-3.0); BLOOD GAS COHb% 0.3 % (0.5-1.5); BLOOD GAS HHB 3.2 % (0.0-6.0); BLOOD GAS PH 7.507 (7.350-7.450); BLOOD O2Hb% 96.4 % (94.0-97.0)
[2017-01-07 21:13] LABS: EOSINOPHILS # (AUTO) 0.1 K/uL (0.0-0.4); HEMOGLOBIN 10.1 g/dL (12.0-16.0); MEAN CORPUSCULAR HEMOGLOBIN 28 pg (27-31); MONOCYTES # (AUTO) 0.4 K/uL (0.0-1.0); RED BLOOD CELL COUNT(AUTO) 3.62 MIL/uL (4.2-6.2)
[2017-01-07 21:19] LABS: MEAN CORPUSCULAR HGB CONC 32 % (32-36)
[2017-01-07 21:22] LABS: HEMATOCRIT 31.5 % (36-48); MEAN CORPUSCULAR VOLUME 87 fL (79.0-98.0); RED CELL DISTRIBUTION WIDTH 15.5 % (9.0-15.0); WHITE BLOOD COUNT (AUTO) 4.1 K/uL (4.8-10.8)
[2017-01-07 21:23] LABS: ANION GAP 9 (5-15); BASOPHILS % (AUTO) 0.8 % (0.0-2.0); CALCIUM 9.9 mg/dL (8.4-11.0); CHLORIDE 109 mmol/L (98-107); CREATININE 0.81 mg/dL (0.55-1.30); EOSINOPHILS % (AUTO) 3.7 % (0.0-4.0); GLUCOSE 112 mg/dL (70-99); LYMPHOCYTES % (AUTO) 23.7 % (20.5-51.5); MONOCYTES % (AUTO) 10.4 % (1.7-9.3); NEUTROPHILS # (AUTO) 2.6 K/uL (1.8-7.7); NEUTROPHILS % (AUTO) 61.4 % (40.0-70.0); POTASSIUM 3.3 mmol/L (3.5-5.1); SODIUM SERUM 142 mmol/L (136-145); UREA NITROGEN, BLOOD 7 mg/dL (8-21)
[2017-01-07 21:24] LABS: PLATELET COUNT (AUTO) 91 K/uL (130-430)
[2017-01-07 21:27] LABS: INR 1.1 (0.8-1.2); PROTHROMBIN TIME 12.1 SECS (9.5-12.5)
[2017-01-07 21:28] LABS: ALANINE AMINOTRANSFERASE 19 U/L (12-78); ALBUMIN 2.8 g/dL (3.4-4.8); ASPARTATE AMINOTRANSFERASE 25 U/L (10-37); TOTAL BILIRUBIN 0.4 mg/dL (0.0-1.0); TOTAL PROTEIN, SERUM 6.7 g/dL (6.4-8.3)
[2017-01-07] MEDS ORDERED: LORazepam 2 MG/ML VIAL IM ONE ×2 (22:00→22:45)
[2017-01-07 22:11] LABS: BILIRUBIN,URINE 1+ (NEGATIVE); BLOOD, URINE 2+ (NEGATIVE); CLARITY/URINE HAZY (CLEAR); COLOR,URINE YELLOW (YELLOW); GLUCOSE,URINE NEGATIVE (NEGATIVE); KETONES,URINE 3+ (NEGATIVE); LEUKOCYTE ESTERASE ,URINE 3+ (NEGATIVE); NITRITE, URINE NEGATIVE (NEGATIVE); PROTEIN URINE TRACE (NEGATIVE); UROBILINOGEN,URINE 0.2 (0.2-1.0)
[2017-01-07 22:24] LABS: BACTERIA,URINE MODERATE /HPF (None Seen); WBC,URINE 20-50 /HPF (0-3)
[2017-01-07 22:25] LABS: MUCUS,URINE None Seen /LPF (None Seen); YEAST,URINE Moderate /HPF (None Seen)
[2017-01-07] MEDS ORDERED: LEVOFLOXACIN 500 MG/D5W 100 ML IV ONE ×2 (22:30→23:00)
[2017-01-07] MEDS ORDERED: LEVOFLOXACIN 500 MG TABLET PO ONE (22:45)
[2017-01-07] MEDS ORDERED: LORazepam 2 MG/ML VIAL (FOR ER USE) ONE (22:47)
[2017-01-07] MEDS ORDERED: METOPROLOL TARTRATE 5 MG/5 ML VIAL IVP ONE (23:45)
[2017-01-08 01:00] VITALS: BP_SYST 139
--- NOTE | 2017-01-08 01:00 | NUR ---
Patient was transferred via [facility] by [facility] with 2 erp technical lead. No acute distress or SOB noted upon discharge. Receiving doctor is Dr. Cullen. Report given to VERA Glynn.
== END 2017-01-08 01:00 | disposition short-term general hospital (02) ==
LOC: SED 20:09
DX: E86.0 Dehydration (principal); N39.0 Urinary tract infection, site not specified; R41.82 Altered mental status, unspecified; C50.912 Malignant neoplasm of unspecified site of left female breast; E11.9 Type 2 diabetes mellitus without complications; I10 Essential (primary) hypertension; E78.5 Hyperlipidemia, unspecified; Z88.8 Allergy status to other drugs, medicaments and biological substances; Z86.73 Personal history of transient ischemic attack (TIA), and cerebral infarction without residual deficits; Z91.02 Food additives allergy status
CPT/HCPCS: 36415; 36600; 70450; 71010; 80053; 81000; 82803; 83605; 84484; 85025; 85610; 85730; 87040; 87086; 93005; 96365; 96366; 96372; 99285; J1956; J2060; J7030

== ENCOUNTER 2017-02-04 19:10 | Emergency (ER) | payer MEDICARE, MEDICAID ==
[~2017-02-04] VITALS: Ht 152.4 cm; Wt 68.0 kg
[2017-02-04 19:10] VITALS: BP_SYST 156
[2017-02-04] MEDS ORDERED: SER25 PO (19:48)
[2017-02-04] MEDS ORDERED: OLAN5TAB3 PO (19:49)
[2017-02-04] MEDS ORDERED: LORA-259 PO (19:49)
[2017-02-04] MEDS ORDERED: WARF5TAB2 PO (19:52)
[2017-02-04] MEDS ORDERED: SENN8.6T19 PO (19:55)
[2017-02-04 19:57] LABS: BASOPHILS % (AUTO) 0.7 % (0.0-2.0); EOSINOPHILS # (AUTO) 0.2 K/uL (0.0-0.4); EOSINOPHILS % (AUTO) 4.8 % (0.0-4.0); HEMATOCRIT 32.8 % (36-48); HEMOGLOBIN 10.8 g/dL (12.0-16.0); LYMPHOCYTES # (AUTO) 1.4 K/uL (1.0-5.5); LYMPHOCYTES % (AUTO) 27.5 % (20.5-51.5); MEAN CORPUSCULAR HEMOGLOBIN 28 pg (27-31); MEAN CORPUSCULAR HGB CONC 33 % (32-36); MEAN CORPUSCULAR VOLUME 86 fL (79.0-98.0); MONOCYTES # (AUTO) 0.4 K/uL (0.0-1.0); MONOCYTES % (AUTO) 8.8 % (1.7-9.3); NEUTROPHILS # (AUTO) 2.9 K/uL (1.8-7.7); NEUTROPHILS % (AUTO) 58.2 % (40.0-70.0); PLATELET COUNT (AUTO) 131 K/uL (130-430); RED BLOOD CELL COUNT(AUTO) 3.83 MIL/uL (4.2-6.2); RED CELL DISTRIBUTION WIDTH 16.7 % (9.0-15.0); WHITE BLOOD COUNT (AUTO) 4.9 K/uL (4.8-10.8)
[2017-02-04] MEDS ORDERED: LACT10SO6 PO (19:59)
[2017-02-04 20:12] LABS: ANION GAP 3 (5-15); CALCIUM 10.3 mg/dL (8.4-11.0); CHLORIDE 108 mmol/L (98-107); CREATININE 0.92 mg/dL (0.55-1.30); GLUCOSE 125 mg/dL (70-99); POTASSIUM 3.6 mmol/L (3.5-5.1); SODIUM SERUM 140 mmol/L (136-145); UREA NITROGEN, BLOOD 15 mg/dL (8-21)
[2017-02-04 20:16] LABS: INR 1.2 (0.8-1.2)
[2017-02-04 20:19] LABS: ASPARTATE AMINOTRANSFERASE 29 U/L (10-37); TOTAL BILIRUBIN 0.7 mg/dL (0.0-1.0)
[2017-02-04 20:20] LABS: ALANINE AMINOTRANSFERASE 16 U/L (12-78); CHOLESTEROL < 50 mg/dL (<200); HDL CHOLESTEROL 113 mg/dL (>55); LDL CHOLESTEROL 66 mg/dL (<100); TRIGLYCERIDES 102 mg/dL (30-150)
[2017-02-04 21:36] LABS: BILIRUBIN,URINE NEGATIVE (NEGATIVE); BLOOD, URINE 2+ (NEGATIVE); CLARITY/URINE HAZY (CLEAR); COLOR,URINE YELLOW (YELLOW); GLUCOSE,URINE NEGATIVE (NEGATIVE); KETONES,URINE 2+ (NEGATIVE); LEUKOCYTE ESTERASE ,URINE 2+ (NEGATIVE); NITRITE, URINE POSITIVE (NEGATIVE); PH,URINE 5.5 (5.0-8.0); PROTEIN URINE 2+ (NEGATIVE); UROBILINOGEN,URINE 0.2 (0.2-1.0)
[2017-02-04 21:45] LABS: BACTERIA,URINE FEW /HPF (None Seen); WBC,URINE 20-50 /HPF (0-3)
[2017-02-04] MEDS ORDERED: NACL 0.9% 1,000 ML IV ONE (21:45)
[2017-02-04] MEDS ORDERED: cefTRIAXone 1 GM in D5W 50 ML IV ONE (21:45)
[2017-02-04 21:46] LABS: MUCUS,URINE None Seen /LPF (None Seen)
[2017-02-04] MEDS ORDERED: cefTRIAXone 1 GM VIAL ONE (21:57)
[2017-02-04 22:22] LABS: INR 1.2 (0.8-1.2); PROTHROMBIN TIME 13.1 SECS (9.5-12.5)
[2017-02-04 23:15] VITALS: BP_SYST 144
== END 2017-02-04 23:15 | disposition short-term general hospital (02) ==
LOC: SED 19:10
DX: R41.82 Altered mental status, unspecified (principal); A41.9 Sepsis, unspecified organism; N39.0 Urinary tract infection, site not specified; Z91.041 Radiographic dye allergy status; E11.9 Type 2 diabetes mellitus without complications; I10 Essential (primary) hypertension; F03.90 Unspecified dementia, unspecified severity, without behavioral disturbance, psychotic disturbance, mood disturbance, and anxiety; E78.5 Hyperlipidemia, unspecified; Z85.3 Personal history of malignant neoplasm of breast; Z86.73 Personal history of transient ischemic attack (TIA), and cerebral infarction without residual deficits; Z79.899 Other long term (current) drug therapy
CPT/HCPCS: 36415; 51702; 70450; 71010; 80053; 80061; 81000; 83605; 84484; 85025; 85610; 85730; 86886; 86900; 86901; 87040; 87086; 87186; 93005; 96365; 99285; J0696; J7030

== ENCOUNTER 2017-02-07 15:12 | Emergency (ER) | payer MEDICARE, MEDICAID ==
[~2017-02-07] VITALS: Ht 157.5 cm; Wt 72.6 kg
[~2017-02-07 15:12] MED LIST changes: +LACT10SO6 PO; +LORA-259 PO; +OLAN5TAB3 PO; +SENN8.6T19 PO; +WARF5TAB2 PO
--- NOTE | 2017-02-07 15:12 | NUR ---
Placed in room 1. Placed on rubberizing mechanic, blood pressure machine and pulse oximeter. To gown for exam. Side rails up. Report given to Rebecca GAMEZ.
[2017-02-07 15:15] VITALS: BP 110/75; PULSE 68; RESP 18; TEMP 97.9; O2SAT 96
--- NOTE | 2017-02-07 15:18 | NUR ---
EYES CLOSED, RESPONSIVE TO PAINFUL STIMULI, OPENS HER EYES TO VERBAL COMMAND, PROTOTYPE SPECIAL BUILD NSR, BLOOD PRESSURE 110/75, SANCHEZ CATHETER IN PLACE WITH CLOUDY , RITA URINE OUTPUT.
--- NOTE | 2017-02-07 15:19 | NUR ---
DINA Greenberg at bedside examining patient.
--- NOTE | 2017-02-07 16:10 | NUR ---
# 22 gauge angiocath placed to RIGHT HAND. Use of aseptic technique. Opsite placed over site. Blood return noted. Blood for lab drawn from site. Flushed with 10 cc of normal saline. No evidence of infiltration noted. Patient tolerated well.
[2017-02-07 16:22] LABS: BASOPHILS # (AUTO) 0.1 K/uL (0.0-0.2); BASOPHILS % (AUTO) 1.7 % (0.0-2.0); EOSINOPHILS # (AUTO) 0.1 K/uL (0.0-0.4); HEMATOCRIT 34.2 % (36-48); HEMOGLOBIN 11.2 g/dL (12.0-16.0); LYMPHOCYTES # (AUTO) 1.5 K/uL (1.0-5.5); LYMPHOCYTES % (AUTO) 30.9 % (20.5-51.5); MEAN CORPUSCULAR HEMOGLOBIN 28 pg (27-31); MEAN CORPUSCULAR HGB CONC 33 % (32-36); MEAN CORPUSCULAR VOLUME 85 fL (79.0-98.0); MONOCYTES # (AUTO) 0.3 K/uL (0.0-1.0); NEUTROPHILS # (AUTO) 2.8 K/uL (1.8-7.7); NEUTROPHILS % (AUTO) 57.4 % (40.0-70.0); RED BLOOD CELL COUNT(AUTO) 4.01 MIL/uL (4.2-6.2); RED CELL DISTRIBUTION WIDTH 16.9 % (9.0-15.0); WHITE BLOOD COUNT (AUTO) 4.8 K/uL (4.8-10.8)
[2017-02-07 16:36] LABS: PLATELET COUNT (AUTO) 200 K/uL (130-430)
[2017-02-07 16:42] LABS: ANION GAP 7 (5-15); CALCIUM 10.5 mg/dL (8.4-11.0); CHLORIDE 108 mmol/L (98-107); GLUCOSE 136 mg/dL (70-99); POTASSIUM 3.4 mmol/L (3.5-5.1); SODIUM SERUM 143 mmol/L (136-145); UREA NITROGEN, BLOOD 17 mg/dL (8-21)
[2017-02-07 16:50] LABS: ALANINE AMINOTRANSFERASE 10 U/L (12-78); ALBUMIN 2.9 g/dL (3.4-4.8); ASPARTATE AMINOTRANSFERASE 25 U/L (10-37); TOTAL BILIRUBIN 0.4 mg/dL (0.0-1.0); TOTAL PROTEIN, SERUM 6.8 g/dL (6.4-8.3)
[2017-02-07] MEDS ORDERED: SULFAMETHOXAZOLE /TRIMETHOPRIM 20 ML in D5W 500 ML IV ONE (17:00)
[2017-02-07] MEDS ORDERED: LORazepam 2 MG/ML VIAL (FOR ER USE) IVP ONE (18:30)
--- NOTE | 2017-02-07 18:49 | NUR ---
MEDICATED WITH ATIVAN 0.5 MG IVP, PT SCREAMING AND CALLING OUT FOR SOMEONE ELSE'S NAME.
--- NOTE | 2017-02-07 19:10 | NUR ---
REPORT CALLED IN TO VERA TODD, E[facility].
[2017-02-07 19:16] VITALS: BP 131/64; PULSE 73; RESP 18; TEMP 98.5; O2SAT 97
--- NOTE | 2017-02-07 19:16 | NUR ---
[facility] Receiving facility has accepting physician and available space. ER physician has signed transfer form. Patient or responsible republican has agreed to transfer and signed form. Copy of nursing notes, lab reports, EKG, Physicians Orders and X-rays to be sent with patient. Report called to PEREZ at receiving facility. Receiving physician is DR SOTO. [facility] FOR TRANSPORTATION.
== END 2017-02-07 19:16 | disposition short-term general hospital (02) ==
LOC: SED 15:12
DX: R53.1 Weakness (principal); I10 Essential (primary) hypertension; E11.9 Type 2 diabetes mellitus without complications; G81.94 Hemiplegia, unspecified affecting left nondominant side; E78.5 Hyperlipidemia, unspecified; Z86.73 Personal history of transient ischemic attack (TIA), and cerebral infarction without residual deficits; Z91.041 Radiographic dye allergy status; Z88.8 Allergy status to other drugs, medicaments and biological substances; Z85.3 Personal history of malignant neoplasm of breast; Z79.899 Other long term (current) drug therapy
CPT/HCPCS: 36415; 80053; 84484; 85025; 96365; 96366; 96375; 99285; J2060; J3490; J7060

== ENCOUNTER 2017-02-22 12:19 | Emergency (ER) | payer MEDICARE, MEDICAID ==
[~2017-02-22] VITALS: Ht 152.4 cm; Wt 65.8 kg
[2017-02-22 12:19] VITALS: BP_SYST 161
[~2017-02-22 12:19] MED LIST changes: -ASCO500T20 PO; -SENN8.8S13 PO
[2017-02-22 12:56] LABS: BASOPHILS % (AUTO) 0.9 % (0.0-2.0); EOSINOPHILS # (AUTO) 0.1 K/uL (0.0-0.4); EOSINOPHILS % (AUTO) 3.7 % (0.0-4.0); HEMATOCRIT 33.2 % (36-48); HEMOGLOBIN 10.5 g/dL (12.0-16.0); LYMPHOCYTES # (AUTO) 0.7 K/uL (1.0-5.5); LYMPHOCYTES % (AUTO) 26.7 % (20.5-51.5); MEAN CORPUSCULAR HEMOGLOBIN 28 pg (27-31); MEAN CORPUSCULAR HGB CONC 32 % (32-36); MEAN CORPUSCULAR VOLUME 87 fL (79.0-98.0); MONOCYTES # (AUTO) 0.2 K/uL (0.0-1.0); MONOCYTES % (AUTO) 7.8 % (1.7-9.3); NEUTROPHILS # (AUTO) 1.7 K/uL (1.8-7.7); NEUTROPHILS % (AUTO) 60.9 % (40.0-70.0); PLATELET COUNT (AUTO) 79 K/uL (130-430); RED CELL DISTRIBUTION WIDTH 16.1 % (9.0-15.0); WHITE BLOOD COUNT (AUTO) 2.7 K/uL (4.8-10.8)
[2017-02-22] MEDS ORDERED: DEXAMETHASONE SOD PHOSPHATE 10 MG/ML VIAL ONE (12:56)
[2017-02-22] MEDS ORDERED: NACL 0.9% 1,000 ML IV ONE (13:00)
[2017-02-22] MEDS ORDERED: cefTRIAXone 1 GM IVPB PREMIX 50 ML IV ONE (13:00)
[2017-02-22] MEDS ORDERED: DEXAMETHASONE SOD PHOSPHATE 10 MG/ML VIAL IVP ONE (13:00)
[2017-02-22 13:08] LABS: PROTHROMBIN TIME 10.9 SECS (9.5-12.5)
[2017-02-22 13:15] LABS: ANION GAP 8 (5-15); CALCIUM 10.1 mg/dL (8.4-11.0); CHLORIDE 107 mmol/L (98-107); CREATININE 0.76 mg/dL (0.55-1.30); GLUCOSE 137 mg/dL (70-99); POTASSIUM 3.9 mmol/L (3.5-5.1); SODIUM SERUM 140 mmol/L (136-145); UREA NITROGEN, BLOOD 14 mg/dL (8-21)
[2017-02-22 13:20] LABS: ALANINE AMINOTRANSFERASE 19 U/L (12-78); ALBUMIN 3.3 g/dL (3.4-4.8); ASPARTATE AMINOTRANSFERASE 33 U/L (10-37); TOTAL BILIRUBIN 0.6 mg/dL (0.0-1.0); TOTAL PROTEIN, SERUM 6.8 g/dL (6.4-8.3)
[2017-02-22 13:20] LABS: BILIRUBIN,URINE NEGATIVE (NEGATIVE); BLOOD, URINE 2+ (NEGATIVE); CLARITY/URINE HAZY (CLEAR); COLOR,URINE YELLOW (YELLOW); GLUCOSE,URINE NEGATIVE (NEGATIVE); KETONES,URINE 1+ (NEGATIVE); LEUKOCYTE ESTERASE ,URINE 3+ (NEGATIVE); NITRITE, URINE POSITIVE (NEGATIVE); PROTEIN URINE TRACE (NEGATIVE); UROBILINOGEN,URINE 0.2 (0.2-1.0)
[2017-02-22 13:25] LABS: ACETAMINOPHEN < 1 ug/mL (1-30)
[2017-02-22 13:33] LABS: BARBITURATE, URINE NEGATIVE (NEG <=200); BENZODIAZEPINE, URINE NEGATIVE (NEG <=150); CANNABINOID, URINE NEGATIVE (NEG <=50); COCAINE, URINE NEGATIVE (NEG <=150); METHAMPHETAMINES SCREEN,URINE NEGATIVE (NEG <=500); OPIATE, URINE NEGATIVE (NEG <=100); PHENCYCLIDINE SCREEN,URINE NEGATIVE (NEG <=25); UR TRICYCLIC ANTIDEPRESSANTS POSITIVE (NEG <=300); URINE AMPHETAMINE NEGATIVE (NEG <=500); URINE METHADONE NEGATIVE (NEG <=200); URINE OXYCODONE SCREEN NEGATIVE (NEG <=100); URINE PROPOXYPHENE SCREEN NEGATIVE (NEG <=300)
[2017-02-22 13:38] LABS: RBC,URINE 0-3 /HPF (0-3)
[2017-02-22 13:39] LABS: BACTERIA,URINE MODERATE /HPF (None Seen); MUCUS,URINE None Seen /LPF (None Seen)
[2017-02-22 16:25] VITALS: BP_SYST 114
== END 2017-02-22 16:25 | disposition short-term general hospital (02) ==
LOC: SED 12:19
DX: G93.40 Encephalopathy, unspecified (principal); N39.0 Urinary tract infection, site not specified; E78.00 Pure hypercholesterolemia, unspecified; F03.90 Unspecified dementia, unspecified severity, without behavioral disturbance, psychotic disturbance, mood disturbance, and anxiety; I10 Essential (primary) hypertension; E11.9 Type 2 diabetes mellitus without complications; Z85.3 Personal history of malignant neoplasm of breast; Z86.73 Personal history of transient ischemic attack (TIA), and cerebral infarction without residual deficits; Z79.82 Long term (current) use of aspirin; Z79.899 Other long term (current) drug therapy; Z88.8 Allergy status to other drugs, medicaments and biological substances; Z91.041 Radiographic dye allergy status
CPT/HCPCS: 36415; 51702; 70450; 71010; 80053; 80307; 81000; 83605; 84484; 85025; 85610; 85730; 87040; 87086; 93005; 96365; 96375; 99291; G0480; J0696; J1100; J7030; 87186-TC